=== PATIENT | female | born 1990 | race Caucasian/White ===

== ENCOUNTER 2019-02-01 10:43 | Observation (INO) ==
[2019-02-01 12:53] LABS: Amphetamine Screen,Urine Negative ng/mL (Cutoff=1000); Barbiturate Screen,Urine Negative ng/mL (Cutoff=200); Benzodiazepines Screen,Urine Negative ng/mL (Cutoff=200); Cannabinoid Screen,Urine Positive ng/mL (Cutoff = 50); Cocaine Screen,Urine Negative ng/mL (Cutoff= 300); Opiate Screen,Urine Negative ng/mL (Cutoff=300); Phencyclidine Screen,Urine Negative ng/mL (Cutoff=25)
[2019-02-01 13:07] LABS: Hemoglobin 14.6 g/dL (11.5-15.4); Mean Corpuscular HGB Conc 33.2 g/dL (31.6-35.5); Mean Corpuscular Hemoglobin 31.5 pg (28.0-33.3); Mean Platelet Volume 9.9 fL (9.4-12.4); Platelet Count 214 K/mcL (140-400); Red Blood Count 4.63 M/mcL (3.82-4.97); White Blood Count 8.8 K/mcL (4.3-11.1)
[2019-02-01 13:26] LABS: BUN/Creatinine Ratio 14 (6-26); Blood Urea Nitrogen 11 mg/dL (6-20); Calcium 9.2 mg/dL (8.6-10.3); Carbon Dioxide 26 mEq/L (23-29); Chloride 108 mEq/L (98-107); Ethanol < 10 mg/dL (Less than 10); Glucose 90 mg/dL (70-105); Osmolality,Calculated 285 (280-300); Potassium 4.2 mEq/L (3.5-5.1); Sodium 138 mEq/L (136-145); eGFR For African Americans > 60 (> 60); eGFR For Non-African Americans > 60 (> 60)
[2019-02-01] MEDS ORDERED: *HR* LORazepam 2 MG/ML VIAL IM PRN (16:40)
[2019-02-01] MEDS ORDERED: Haloperidol Lactate 5 MG/ML VIAL IM PRN (16:40)
[2019-02-01] MEDS ORDERED: Ibuprofen 400 MG TABLET PO PRN (16:40)
[2019-02-01] MEDS ORDERED: hydrOXYzine pamoate 25 MG CAPSULE PO PRN (16:40)
[2019-02-01] MEDS ORDERED: Mag Hydrox/Al Hydrox/Simeth 30 ML UDC PO PRN (16:40)
[2019-02-01] MEDS ORDERED: MOM Conc 10 ML UD.LIQ PO PRN (16:40)
[2019-02-01] MEDS ORDERED: traZODone 50 MG TABLET PO PRN (16:40)
[2019-02-01] MEDS ORDERED: *HR* LORazepam 1 MG TABLET PO PRN (16:40)
[2019-02-01] MEDS: Nicotine 21 MG PATCH.TD24 TD SCH (17:51)
[2019-02-02 09:22] VITALS: BP 114/72
[2019-02-02] MEDS: Nicotine 21 MG PATCH.TD24 TD SCH (09:29)
--- NOTE | 2019-02-02 12:33 | Discharge Summary ---
Date of Encounter: 02/02/19 Time of Encounter: 12:00 History of Present Illness Chief complaint: depression Admitted From: Emergency Dept History of Present Illness: Ms. Jara is a 28 year old female and some passive thoughts that life would be ea sier if she were not living. She denied active suicidal thoughts, ideations, or plans. She did agree to come in as an observation stay to monitor her as she was owing to consider starting medications. She reports that she has had sad mood, decreased ability to fall asleep and stay asleep, poor appetite with about 10 pound weight loss over the last 6 weeks, decreased interest, feelings of guilt and worthlessness, and low energy. She denies prior manic symptoms. She denies auditory or visual hallucinations except in the context of when she gets very upset she hears her own voice in her head at times telling her she be better off . She reports some anxiety particularly with worry at night about a number of different topics and feeling that it is difficult to shut her mind down to allow her to rest. Currently she is denying suicidal or homicidal thoughts, ideations, or plans. She is very future oriented toward getting back home to her children. She has a supportive . She lives on a [address] in their own home but also on the land are her parents and her brother. Past Med Surg Social Fam HX - Past Medical History Medical history: no medical history - Past Psychiatric History Psychiatric history: Reports: no psych history Past psychiatric history details: He has never been in a psychiatric hospital. She has never tried psychiatric medications. She has never gotten outpatient services. She had a history of cutting as a teenager but none in the last 8 years. She is no prior suicide attempts. She did set up an appointment for an intake at the counseling center on February 08. Family psychiatric history: Yes Family History of Suicide: None - Social History Smoking Status: Current every day smoker Smokeless Tobacco Status: No Alcohol use: none Drug use: marijuana Occupational status: unemployed Current living situation: Home - Independent Activity Level: Independent ambulation Recent Out of Country Travel Within the Last 8 Weeks: No Exposure or Possible Exposure to Illness During Travel: No Additional social history: She lives with her and 2 children ages 5 and 6. One of her children has autism so there are a lot of appointments she needs to take her to and the child does not sleep particularly well. Her parents live in a house on the same plot of land and her brother also lives in another house on the same plot of land so she has a lot of social support. She previously worked at the [employer] before stopping to take care of the children. - Family History Father Name: Mau Jara Age: 49 Family Member Ethnicity: Non- Living Status: Still Living Hx Family Cardiac Disorders: No Hx Family Respiratory Disorders: Yes (COPD) Hx Family Cancer: No Hx Family GI Disorders: No Hx Family Genitourinary Disorders: No Hx Family Endocrine Disorder: No Hx Family Musculoskeletal Disorders: No Hx Family Neuromuscular Disorders: No Hx Family Neurologic Disorders: No Hx Family HEENT Disorders: No Hx Family Autoimmune Disorders: No Hx Family Reproductive Disorders: No Hx Family Psychosocial Disorders: No Hx Family Medical Disorders: No Medications - Discharge Medications Prescriptions: Sertraline [Zoloft] 25 mg PO DAILY #15 tablet Sertraline [Zoloft] 25 mg PO DAILY #15 tablet 02/02/19 [Rx] Allergy/AdvReac Type Severity Reaction Status Date / Time No Known Allergies Allergy Verified 02/01/19 16:40 Review of Systems Constitutional: Reports: weight change. Denies: fever Eyes: Denies: eye pain Ears, Nose, Throat: Denies: ear pain Cardiovascular: Denies: chest pain Respiratory: Denies: cough Gastrointestinal: Denies: abdominal pain Genitourinary female: Denies: urgency Musculoskeletal: Denies: back pain Integumentary: Denies: rash Neurological: Denies: headache Psychiatric: Reports: depression, anxiety, abnormal sleep pattern, change in appetite. Denies: suicidal ideation, homicidal ideation, auditory hallucinations, visual hallucinations Endocrine: Reports: fatigue Hematologic/Lymphatic: Denies: easy bleeding Allergic/Immunologic: Denies: facial swelling Exam - HEENT Head exam IM: Present: atraumatic Eye exam IM: Present: EOMI ENT exam IM: Present: mucous membranes moist - Neurological Neurological exam: Present: CN II-XII intact - Respiratory Respiratory exam IM: Absent: respiratory distress - GI/Abdominal GI/Abdominal exam IM: Present: no peritoneal signs - Extremities Extremities exam IM: Present: full ROM - Skin Skin exam IM: Absent: abrasion - Constitutional Vitals: Temp Pulse Resp BP Pulse Ox 97.3 F L 69 18 114/72 100 02/02/19 09:00 02/02/19 09:00 02/02/19 09:00 02/02/19 09:00 02/02/19 09:00 General appearance: age & developmentally appropriate - Musculoskeletal Gait: normal Station: relaxed Strength & Tone: normal for patient - Psychiatric Patient Orientation: Yes Person, Yes Time, Yes Place Level of alertness: Alert Behavior: calm, cooperative Psychomotor activity: Normal Eye Contact: Maintains Eye Contact Mood Description: Euthymic/stable Patient description of mood: Good Affect description: congruent with mood, full range Speech Volume: Normal Speech pattern: normal rate, normal rhythm, normal tone, fluent, spontaneous Language & Vocabulary: consistent with education Thought Process: Linear, Goal Oriented Thought Content: No Suicidal ideation, No Homicidal ideation, No Overt delusions Perceptual Disturbances: No Auditory hallucinations, No Visual hallucinations Attention Span Ability: Capable of Focused Attention Memory Description: Grossly Intact Patient Reliability: Reliable Historian Fund of knowledge: Yes abstraction ability, Yes average, Yes aware of current events Intelligence Estimate: Average Judgment: Good Insight: Full Results - Drug Levels and Toxicology Drug Levels and Toxicology: Drug Levels and Toxicity 02/01/19 02/01/19 11:06 12:45 Urine Opiates Screen Negative Ur Barbiturates Screen Negative Ur Phencyclidine Scrn Negative Ur Amphetamines Screen Negative U Benzodiazepines Scrn Negative Urine Cocaine Screen Negative U Marijuana (THC) Screen Positive H Ethyl Alcohol < 10 - Labs Labs: Laboratory Last Values WBC 8.8 K/mcL (4.3-11.1) 02/01/19 12:45 RBC 4.63 M/mcL (3.82-4.97) 02/01/19 12:45 Hgb 14.6 g/dL (11.5-15.4) 02/01/19 12:45 Hct 44.0 % (35.3-44.9) 02/01/19 12:45 MCV 95.0 fL (83.0-100.0) 02/01/19 12:45 MCH 31.5 pg (28.0-33.3) 02/01/19 12:45 MCHC 33.2 g/dL (31.6-35.5) 02/01/19 12:45 RDW 12.0 % (11.5-14.5) 02/01/19 12:45 Plt Count 214 K/mcL (140-400) 02/01/19 12:45 MPV 9.9 fL (9.4-12.4) 02/01/19 12:45 Sodium 138 mEq/L (136-145) 02/01/19 12:45 Potassium 4.2 mEq/L (3.5-5.1) 02/01/19 12:45 Chloride 108 mEq/L (98-107) H 02/01/19 12:45 Carbon Dioxide 26 mEq/L (23-29) 02/01/19 12:45 BUN 11 mg/dL (6-20) 02/01/19 12:45 0.77 mg/dL (0.60-1.20) 02/01/19 12:45 Est GFR ( Amer) > 60 (> 60) 02/01/19 12:45 Est GFR (Non-Af Amer) > 60 (> 60) 02/01/19 12:45 14 (6-26) 02/01/19 12:45 Glucose 90 mg/dL (70-105) 02/01/19 12:45 285 (280-300) 02/01/19 12:45 Calcium 9.2 mg/dL (8.6-10.3) 02/01/19 12:45 Negative ng/mL (Wlyhma=978) 02/01/19 11:06 Ur Barbiturates Screen Negative ng/mL (Zuaiui=448) 02/01/19 11:06 Ur Phencyclidine Scrn Negative ng/mL (Cutoff=25) 02/01/19 11:06 Ur Amphetamines Screen Negative ng/mL (Cuegpj=2982) 02/01/19 11:06 U Benzodiazepines Scrn Negative ng/mL (Ykxamu=566) 02/01/19 11:06 Negative ng/mL (Cutoff= 300) 02/01/19 11:06 U Marijuana (THC) Screen Positive ng/mL (Cutoff = 50) H 02/01/19 11:06 Ur Drug Screen Interp See Below 02/01/19 11:06 Ethyl Alcohol < 10 mg/dL (Less than 10) 02/01/19 12:45 Diagnosis - Discharge Diagnosis (1) Depression Status: Acute Qualifiers: Depression Type: major depressive disorder Major depression recurrence: recurrent Active/Remission status: currently active Major depression episode severity: moderate Qualified Code(s): F33.1 - Major depressive disorder, recurrent, moderate Assessment and Plan - Patient/Caregiver Discharge Instructions Activity: resume usual activities as tolerated Diet: regular diet Additional Instructions: Continue current medications. Follow up with outpatient mental health. Encourage continued therapy in a group or individual setting. The patient was discharged to home. - Follow up Plan Follow up with: NONE,PCP [Primary Care Provider] - Functional capacity at discharge: independent ambulation Overall status at discharge: Stable Disposition: Home, Self-Care Provider Date of admission: 02/01/19 15:42 Primary care physician: PCP NONE Discharging clinician: [facility] Course Hospital course: Ms. Jara is a 28 year old female who was admitted for depression with some anxiety and passive suicidal ideations. She was observed overnight and her mood was stable. In the morning she denied any further suicidal thoughts, ideations, or plans. She had never had a specific plan of how she would harm herself. She was future oriented toward getting back home and being with her children and family. She has a lot of family support including her and her parents and brother who all live on the same [address]. She was started on Zoloft 25 mg by mouth every morning for depression and anxiety.Patient was educated of diagnosis and the risk-benefit side effects of this alternative treatment options and was monitored for responsiveness and side effects. Mood anxiety sleep and appetite interest improved as did future orientation. Self- harm thoughts subsided. The patient was educated primarily by verbal means about their diagnosis and manifestations in their life. The option for t reatment including group and individual therapy programming was offered to the patient in addition to the use of medications with all their potential risks, benefits, and side effects as well as the risks of not taking medication and non-adhereance were discussed with the patient at length. The patient was given the opportunity to ask questions and was noted to participate in the treatment in the planning process. The patient felt ready and eager to be discharged from the inpatient psychiatric unit to continue on with treatment as an outpatient. The patient agreed that is they were safe for this disposition. The patient was considered to be able to participate in informed consent and decision making with respect to medical, legal, and financial issues of the time of discharge. At the time of discharge the patient adamantly denied any concerns for lethality including suicidal or homicidal thoughts ideations or plans and was future oriented toward ongoing mental health care and she arty had a counseling center intake evaluation on February 08 scheduled.. Time spent discussing smoking cessation with patient: 3 to 10 minutes Does patient wish to continue nicotine replacement upon disc: No - Time Spent with Patient Total time spent providing and/or coordinating discharge services: 45 Greater than 30 minutes Specific discharge activities: Interval history reviewed. Available labs reviewed . Psychotherapy provided. Patient had an opportunity to ask questions and address concerns. Patient was in agreement with the treatment plan. The risks benefits and side effects of medications were discussed with the patient, including alternatives and treatment. The patient was educated on the abstaining from any alcohol or illicit substances, following up with all scheduled appointments, and taking all medications as prescribed. Procedures - Procedures Procedures: Medication Management, Crisis Stabilization, Supportive Therapy, Group Therapy, Psychoeducational Therapy Quality - Multiple Antipsychotics Patient discharged on 2 or more antipsychotic medications: No
== END 2019-02-02 13:15 | disposition home or self-care (01) ==
LOC: EMEROOARM 10:43 → 1ANU 10:43
PROVIDERS: ADMIT Psychiatry & Neurology Psychiatry; ATTEND Psychiatry & Neurology Psychiatry